=== PATIENT | female | born 2000 | race Caucasian/White ===

== ENCOUNTER 2021-05-31 12:27 | Emergency (ER) | payer BC ==
[~2021-05-31] VITALS: Ht 154.9 cm; Wt 52.6 kg
[~2021-05-31 12:27] MED LIST: BACTRIM DS TAB1 EACH
[2021-05-31 12:59] LABS: ABSOLUTE EOSINOPHILS 0.2 thou/uL (0.0-0.7); ABSOLUTE LYMPHOCYTES 1.9 thou/uL (0.8-5.3); ABSOLUTE MONOCYTES 0.4 thou/uL (0.0-1.2); ABSOLUTE NEUTROPHILS 3.7 thou/uL (1.6-8.1); BASOPHILS 0.6 %; EOSINOPHILS 2.8 %; HEMATOCRIT 38.3 % (37.0-47.0); HEMOGLOBIN 12.9 gm/dL (12.0-15.0); LYMPHOCYTES 29.8 %; MCH 30.4 pg (26.0-34.0); MCHC 33.8 g/dL (28.0-37.0); MCV 89.9 fL (80.0-100.0); MPV 9.1 fl. (7.2-11.1); NUCLEATED RBCS 0 /100WBC; PLATELET COUNT* 189 thou/uL (150-400); POLYS 59.8 %; RBC 4.25 mil/uL (4.20-5.00); WBC 6.2 thou/uL (4.0-11.0)
[2021-05-31 13:08] LABS: CALCIUM 8.5 mg/dL (8.5-10.1); CREATININE 0.7 mg/dL (0.6-1.3); POTASSIUM 3.7 mmol/L (3.5-5.1)
[2021-05-31 13:10] LABS: URINE BILIRUBIN NEGATIVE (Negative); URINE BLOOD 2+ (Negative); URINE CLARITY CLEAR; URINE COLOR YELLOW; URINE GLUCOSE-RANDOM NEGATIVE (Negative); URINE KETONES NEGATIVE (Negative); URINE NITRITE-REFLEX NEGATIVE (Negative); URINE PROTEIN 1+ (Negative)
[2021-05-31 13:11] LABS: ALBUMIN 3.9 g/dL (3.4-5.0); TOTAL BILIRUBIN 0.5 mg/dL (<0.1-1.0); TOTAL PROTEIN 7.2 g/dL (6.4-8.2)
[2021-05-31 13:12] LABS: URINE LEUKOCYTES-REFLEX 2+ (Negative)
[2021-05-31 13:24] LABS: MUCUS >6 Heavy strn/LPF (None Seen); SQUAMOUS >10 Many /LPF (0-3)
[2021-05-31 13:25] LABS: BACTERIA-REFLEX >30 Many /HPF (None Seen); HYALINE CASTS 0-3 Few /LPF (None Seen)
[2021-05-31 13:26] LABS: URINE RBC 3-10 Few /HPF (0-2); URINE WBC-REFLEX 6-15 Few /HPF (0-5)
[2021-05-31] MEDS ORDERED: MACROBID 100 M100 M1 PO (14:06)
[2021-05-31 14:19] VITALS: BP 105/62
--- NOTE | 2021-05-31 14:29 | EKG ---
[place] [address] ELECTROCARDIOGRAM REPORT Name: PATRICK SMILEY Room: [facility]#: [id number] Admission: 05/31/21 Attend Phys: Discharge: 05/31/21 Date of : 01 Date of Service: 05/31/21 1250 Report #: [id number] THIS REPORT FOR: //name// [facility] ED Test Date: 2021-05-31 Test Time: 12:50:46 Pat Name: PATRICK SMILEY Department: Room: Gender: F [employer]ter Helper: : 2000 Requested By: Donna Brown Order Number: [id number] MD: Eddie Sánchez Measurements Intervals [place] Rate: 86 P: 76 NE: 146 QRS: 75 QRSD: 83 T: 43 QT: 348 QTc: 417 Interpretive Statements Sinus rhythm Probable left atrial enlargement RSR' in V1 or V2, probably normal variant No previous ECG available for comparison Electronically Signed On 05-31-2021 14:28:51 [place] [employer] by Eddie Sánchez [email or web address] <ELECTRONICALLY SIGNED> By: Eddie Sánchez MD, [facility] 05/31/21 1428 1250 1250 Eddie Sánchez MD, [facility] /EPI
== END 2021-05-31 14:20 | disposition home or self-care (01) ==
LOC: M.ERS 12:27
PROVIDERS: Student in an Organized Health Care Education/Training Program
DX: R07.89 Other chest pain (principal); R11.0 Nausea; J45.909 Unspecified asthma, uncomplicated; Z88.1 Allergy status to other antibiotic agents; Z88.0 Allergy status to penicillin